=== PATIENT | female | born 1985 | race Caucasian/White ===

== ENCOUNTER 2017-09-19 16:05 | Emergency (ER) | payer OTHER, SELFPAY ==
[2017-09-19 16:05] VITALS: BP 111/82; PULSE 122; RESP 18; TEMP 36.8; O2SAT 99; BMI 34.5
[2017-09-19] MEDS: Metoclopramide 10 MG/2 ML Vial IV (16:31)
[2017-09-19] MEDS: Lactated Ringers 1,000 ML 999 ML IV ×2 (16:31→18:13)
[2017-09-19 16:36] LABS: Absolute Lymphocyte Count 0.61 X10^3/ul (0.83-4.51); Absolute Neutrophil Count 9.6 X10^3/uL (2.0-7.7); Basophil# 0.01 X10^3/uL; Basophil% 0.1 % (0-1); Eosinophil# 0.02 X10^3/uL; Eosinophils% 0.2 % (0-5); Hematocrit 35.4 % (37-47); Hemoglobin 11.6 g/dl (12.0-15.0); Lymphocyte # 0.61 X10^3/ul (4.0); Lymphocyte % 5.8 % (19-41); Mean Corp Hgb Conc 32.8 g/gl (32-36); Mean Corpuscular Hgb 28.2 pg (27.0-32.0); Mean Corpuscular Volume 85.9 fL (81-99); Mean Platelet Vol. 11.5 fl (6.2-12.0); Monocyte% 2.8 % (0-10); Neutrophil # 9.58 X10^3/uL (2.7-7.7); POSITIVE COUNT NO; POSITIVE DIFFERENTIAL NO; POSITIVE MORPHOLOGY NO; Platelet Count 146 K/mm3 (150-450); RBC Distribution Width CV 13.1 % (11.6-14.6); RBC Distribution Width SD 40.9 fl (35.1-43.9); Red Blood Count 4.12 M/mm3 (4.2-5.4); White Blood Count 10.5 K/mm3 (4.4-11.0)
[2017-09-19 16:51] LABS: ALB/GLOB Ratio 0.7 RATIO (0.9-2.4); AST(SGOT) 15 U/L (15-37); Alanine Aminotransfer ALT/SGPT 15 U/L (13-56); Albumin, Serum 2.9 g/dL (3.2-5.0); Alkaline Phosphatase 119 U/L (45-117); Anion Gap 10 (5-15); BUN 6 mg/dL (7-18); BUN/Creat Ratio 11.1 RATIO (10-20); Calcium,Total 8.4 mg/dL (8.5-10.1); Chloride 108 mmol/L (98-107); Creatinine, Serum 0.54 mg/dL (0.55-1.02); EST Glomerular Filtration Rate 138 mL/min (>60); Est Glom Filt Rate - Afr Amer 167 mL/min (>60); Estimated Creatinine Clearance 118.29 ml/min; Globulin 4.2 g/dL (2.2-4.2); Glucose 89 mg/dL (74-106); Protein, Total 7.1 g/dL (6.4-8.2); Sodium Level 139 mmol/L (136-145)
[2017-09-19 19:54] VITALS: BP 97/46; PULSE 78; RESP 16; O2SAT 100
[2017-09-19] MEDS: Meclizine HCl 25 MG Tablet PO (19:55)
--- NOTE | 2017-09-19 20:31 | ED.DCSUM_ITS ---
- ER Visit Summary Date of Service: 09/19/17 Chief Complaint: Nausea vomiting and dizziness History of Present Illness: The patient is a 32 F presenting for evaluation secondary nausea vomiting dizziness. Patient reports that approximately 9:00 this morning she had a relatively sudden onset dizziness. Patient describes this as a room spinning type sensation that is worse with any sort of change in position. Patient states that since that happened she has developed significant nausea and vomiting up to 6 and 7 episodes. She also has had one episode of loose diarrhea. She denies any presence of fevers. She denies any head injuries visual changes numbness or weakness. She denies any speech difficulties. Patient is 37 weeks , . She denies any vaginal bleeding or loss of fluid or decreased movement. She denies any tinnitus or recent dental work. Review of systems otherwise negative. Physical Examination: Vital signs are notable for heart rate of 172 on presentation. Well-nourished female no acute distress. Ocular exam shows left- going nystagmus. Moist mucous membranes. Neck was supple. Heart was tachycardic and regular. Lung sounds clear to auscultation bilaterally. Abdomen was nontender and gravid. Extremities were nonedematous. Skin normal color no rash. Patient was alert and oriented, no lateralizing neurological deficits and normal cerebellar testing. Test Results: CBC shows mild anemia 11.6, chemistry shows an elevated chloride 108, liver panel shows mildly elevated alkaline phosphatase 119 Emergency Department Course and Treatment: Patient presented for evaluation secondary dizziness nausea vomiting. Patient was given Reglan for treatment of her nausea and did have some improvement. Patient had persistent nystagmus which seems consistent with a peripheral vertigo and was given meclizine. I did perform a Aviva maneuver on this patient, but was unsuccessful in totally alleviating the patient's symptoms. Patient's heart rate improved with 2 L of lactated Ringer's. At this point I believe patient is safe for discharge. She will be sent home with a course of meclizine and follow-up with primary care. Disposition: Discharge Impression: 1. Left-sided BPPV 2. 37 week This note was generated with [employer] software. It may contain incorrect words, spelling, and punctuation that were not noted in review of the chart prior to signing ED Disposition - Plan for ED Patient: Disposition: Home or Assisted Living Chief Complaint: Nausea/Vomiting Diagnosis: BPPV (benign paroxysmal positional vertigo) Instructions: ED BPV Vertigo Prescriptions: Meclizine HCl [Antivert] 25 mg PO 4X/DAY PRN PRN #20 tab PRN Reason: Dizziness
[2017-09-19 20:36] VITALS: BP 120/69; PULSE 100; RESP 20; O2SAT 97
== END 2017-09-19 20:36 | disposition home or self-care (01) ==
PROVIDERS: Emergency Provider Emergency Medicine
DX: O99.89 Other specified diseases and conditions complicating pregnancy, childbirth and the puerperium (principal); H81.12 Benign paroxysmal vertigo, left ear; Z3A.37 37 weeks gestation of pregnancy
CPT/HCPCS: 80053; 85025; 96361; 96374; 99284; J7120; A4216

== ENCOUNTER 2017-10-15 16:00 | Inpatient (IN) | payer OTHER, SELFPAY ==
[2017-10-15 17:30] VITALS: BMI 34.1
[2017-10-15] MEDS: 0.9% Normal Saline 100 ML IV.SOLN. INTRA-UTER (18:05)
[2017-10-15] MEDS: Lactated Ringers 1,000 ML 50 ML IV ×3 (18:15→23:45)
[2017-10-15 18:42] LABS: Hematocrit 36.1 % (37-47); Hemoglobin 11.7 g/dl (12.0-15.0); Mean Corp Hgb Conc 32.4 g/gl (32-36); Mean Corpuscular Hgb 27.5 pg (27.0-32.0); Mean Corpuscular Volume 84.7 fL (81-99); Mean Platelet Vol. 12.3 fl (6.2-12.0); Platelet Count 194 K/mm3 (150-450); RBC Distribution Width CV 13.8 % (11.6-14.6); RBC Distribution Width SD 42.4 fl (35.1-43.9); Red Blood Count 4.26 M/mm3 (4.2-5.4); Scan Indicated on CBC? Y/N NO; White Blood Count 11.2 K/mm3 (4.4-11.0)
--- NOTE | 2017-10-15 20:43 | HP.PCM_ITS ---
History Date of Admission: 10/15/17 Final CRISS: 10/08/17 Final CRISS Source: US <20 weeks Gestational age: 41 Weeks and 0 Days History of this : 32-year-old 3 para 2 female who presents at 41 weeks gestational age with EDC of 10/08/2017 by last menstrual period confirmed by first trimester ultrasound presents today for induction of labor. She has had some irregular contractions. She has had no gross vaginal bleeding or leaking of food. She has had good movements. She has a history of one previous section for nonreassuring heart tones and she has a second there was a spontaneous vaginal delivery without complications. Allergies levofloxacin [From Levaquin] Allergy (Verified 09/19/17 16:09) Swelling sulfamethoxazole [From Bactrim] Allergy (Verified 09/19/17 16:09) Other family history trimethoprim [From Bactrim] Allergy (Verified 09/19/17 16:09) Other family history Home Medications: Home Medications Vits [Prenatabs FA] 1 tablet PO DAILY 06/24/14 Smoking Status: Never smoker Alcohol: None Substance Use Type: Alcohol Number of Fetus(es): 1 Heart Tracing: category 1 upon admission TOCO Analysis: ctxs q4 min History Past Pregnancies: Past Pregnancies Delivery Date Name GA/Weeks Outcome Route Weight Infant Gender Labor Length Anesthesia Delivery Location Provider FOB Expected Infant Delivery Method: Review of Systems Constitutional: Denies: Anorexia, Chills, Fever Cardiovascular: Denies: Chest Pain Respiratory: Denies: Cough, Shortness of Breath Skin: Denies: Rash Physical Exam General: Alert, Cooperative, No apparent distress Cardiovascular: Regular rate Lungs: Normal air movement Abdomen: Soft, Non Tender, Non-Distended, Gravid, Appropriate for Gestational Age Extremities:: Other - edema -trace BLUEPRINT BLOCKER: Normal external genitalia Estimated gestational size: Appropriate for gestational size Presentation: Cephalic Cervix Dilation (cm): 2.5 - mid position, medium consistency Station: -3 Effacement (%): 50 Assessment/Plan 32-year-old 3 para 2 female at 41 weeks gestation with history of one previous section followed by one successful vaginal delivery. Risks benefits and alternatives to induction of labor have been discussed with the patient, her questions were answered to her satisfaction she desires to proceed. We will proceed with Winkler ripening. Will use artificial rupture membranes and Pitocin augmentation if needed. Estimated weight is less than 4500 g and pelvis clinically adequate to expect vaginal delivery. Patient understands that she can elect for section at any time. Procedure note: The Winkler was placed over the stylette in to the internal cervical loss in the usual sterile fashion. The balloon was inflated to 30 cc. Placement against the internal cervical loss was confirmed. The patient tolerated the procedure well..
[2017-10-15] MEDS: fentaNYL-bupivacaine (epidural) 100 ML BAG EPIDURAL (21:38)
[2017-10-15] MEDS: Oxytocin 30 units/NS 500 ml 30 UNITS/500 ML IV.SOLN IV (23:30)
[2017-10-16] MEDS: fentaNYL-bupivacaine (epidural) 100 ML BAG EPIDURAL (07:46)
[2017-10-16] MEDS: Oxytocin 30 units/NS 500 ml 30 UNITS/500 ML IV.SOLN 334 UNITS IV (09:01)
--- NOTE | 2017-10-16 09:10 | PCM.OB.VAG ---
Vaginal Delivery Maternal Presentation: Medically Indicated Induction Method of Induction: Pitocin, Winkler Bulb, Amniotomy Medical Reason for Induction: - - 41 weeks Amniotic Membrane Rupture Type: Artificial Amniotic Fluid Description: Clear Final CRISS: 10/08/17 Final CRISS Source: US <20 weeks Gestational age: 41 Weeks and 1 Days Date of Procedure: 10/16/17 Pre-Operative Diagnosis: labor Post-Operative Diagnosis: same Surgery/ Procedure Performed: Spontaneous Vaginal Delivery Type of Anesthesia: Epidural Description of Procedure: A vigorous male infant was delivered [LIBAN] over a small first-degree perineal laceration.. The remainder the infant was delivered with maternal pushing and gentle traction only in less than 15 seconds. The Pitocin infusion was initiated for active management of the third stage. The cord was clamped and cut [after 1 minute]. The infant was attended to by the waiting nursing staff. The placenta was delivered spontaneously and intact. The cervix and vagina were intact. The first-degree laceration was hemostatic and not repaired. Lower uterine segment of the uterus was palpated and intact. Sponge and needle counts were correct. A vaginal sweep was completed by me. Presentation: LIBAN Placental Delivery Description: Spontaneous Placenta Disposition: [facility] Cord Vessel Description: 3 Vessels Cord Entanglement: None Drain: Winkler to straight drain Estimated Blood Loss: 200cc Infant A gender: Male (1 minute): 8 (5 minute): 9 Episiotomy Description: None Laceration: 1st degree - not repaired Medications given after delivery: IV Pitocin Complications: None
[2017-10-16] MEDS: Oxytocin 30 units/NS 500 ml 30 UNITS/500 ML IV.SOLN 167 UNITS IV (09:31)
[2017-10-16] MEDS: 0.9% Saline Lock 10 ML Syringe IV (10:42)
[2017-10-16 11:30] VITALS: BP 109/59; PULSE 81; RESP 18; TEMP 37.2
--- NOTE | 2017-10-16 14:00 | NURSING ---
Epidural cath removed, blue tip intact. Winkler cath removed after balloon deflated. Attempt to get pt. up to bathroom for aisha-care, pt's left leg still too numb. Pt. back to bed, aisha-care completed.
[2017-10-16] MEDS: Naproxen 250 MG Tablet PO (16:56)
[2017-10-16 17:04] VITALS: BP 120/70; PULSE 81; RESP 18; TEMP 36.7
[2017-10-16 21:00] VITALS: BP 109/65; PULSE 76; RESP 16; TEMP 36.7; O2SAT 97
[2017-10-17 01:00] VITALS: BP 106/61; PULSE 80; RESP 16; TEMP 36.8; O2SAT 98
[2017-10-17 05:00] VITALS: BP 106/61; PULSE 80; RESP 16; TEMP 36.3; O2SAT 98
[2017-10-17 08:57] VITALS: BP 104/72; PULSE 77; RESP 18; TEMP 36.3
[2017-10-17] MEDS: Naproxen 250 MG Tablet PO (09:50)
[2017-10-17 10:11] VITALS: BP 104/72; PULSE 77; RESP 18; TEMP 36.3
--- NOTE | 2017-10-17 10:12 | DCINST_ITS ---
Discharge Diet: No Restrictions Discharge Activity: Return to Normal Activity, May not drive while taking narcotic pain medications., May Shower May resume sexual activity in: 4-6 weeks Additional Activity Instructions:: Nothing in the vagina for 4-6 weeks. You may return to work/school in 6 weeks. Call your doctor if your incision/area has: Continuous Slow Oozing, Sudden Increased Bleeding, Increased Pain/ Swelling, Increased Redness, Foul Smelling Discharge Call your doctor if you observe: Fever of 101 or Higher, Inability to urinate, Inability to have a bowel movement, Using more than one pad per hour Additional Instructions: If you experience any of the following, contact your healthcare provider. * Bleeding that soaks a pad every hour for 2 hours * Fever 100.4 or higher * Unrelieved incision or abdominal pain * Swelling, redness, discharge or bleeding from your incision or episiotomy site * Your incision begins to separate * Problems urinating (including inability to urinate or burning while urinating) . * Visual changes * Severe headache * Flu-like symptoms * Pain or redness in one of both of your breasts * Pain, warmth, tenderness or swelling in your legs, especially the calf area * Frequent nausea and vomiting * Symptoms of depression or anxiety If you experience any of the following, call 911 or go to the nearest Emergency Room. * Chest pain * Problems breathing * Seizure activity * Partial or complete paralysis of a body part, slurred speech, weakness or drooping of the face, or a sudden inability to walk or hold your balance Allergies/Adverse Reactions: Allergies levofloxacin [From Levaquin] Allergy (Verified 09/19/17 16:09) Swelling sulfamethoxazole [From Bactrim] Allergy (Verified 09/19/17 16:09) Other family history trimethoprim [From Bactrim] Allergy (Verified 09/19/17 16:09) Other family history Medications to take at Discharge Vits [Prenatabs FA] 1 tablet PO DAILY 06/24/14 Please Follow Up With: Rosenda Saenz MD When: Call to make an appointment with your doctor in 6 weeks. If you had elevated Blood Pressure or 4th degree laceration you will need to be seen in 2 weeks. Primary Care Physician: Care Physician,No Primary [Primary Care Provider] - Test Results: Test results from this visit will be discussed in further detail at your follow- up appointment, if applicable. Proposed Discharge Date: 10/17/17
--- NOTE | 2017-10-17 10:12 | PCM.PN.OB ---
Subjective: Patient sitting up in bed finishing breakfast, reports no issues at this time. Patient reports that baby is latching well, denies any issues with . Patient denies CHRISTENSEN, dizziness or scotoma. Patient notes no issues with urination or ambulation. Patient desires discharge to home today. Objective: Nipples without cracks or blisters Abd NT x 4 quadrants, FF midline @ 2FB below umbilicus +2/4 reflexes in LE, no edema noted. Negative calf tenderness. Scant rubra lochia, intact perineum - Physical Exam General: Alert, Oriented x3, Cooperative HEENT: Atraumatic, Normocephalic Neck: Supple Lungs: Normal air movement Cardiovascular: Regular rate, No murmurs Abdomen: Soft, Non Tender Extremities: No edema, Capillary Refill Less than 3 Seconds Skin: No rashes, No breakdown Musculoskeletal: No Tenderness to Palpation of Joints or Extremities Neurological: Cranial nerves II-XII grossly intact, Deep Tendon Reflexes 2+/4 and Symmetrical Psych/Mental Status: Normal Affect, Appropriate, Alert and oriented to time, place, person, mood and affect Vital Signs Temp Pulse Resp BP Pulse Ox 97.3 F L 77 18 104/72 98 10/17/17 08:57 10/17/17 08:57 10/17/17 08:57 10/17/17 08:57 10/17/17 05:00 Oxygen Delivery Method Room Air Weight: 186 lb 11.704 oz Body Mass Index (BMI) 34.1 Intake and Output for Last 24 Hours 10/15/17 10/16/17 10/17/17 23:59 23:59 23:59 Intake Total 3480 / 3480 Output Total 1200 / 1200 Balance 2280 / 2280 Laboratory Tests Past 24 Hrs 10/16/17 13:55 Screen NEGATIVE Baby's Blood Type O POSITIVE Baby's SHELLY NEGATIVE Medical Necessity - Tobacco Use Smoking Status: Never smoker Assessment/Plan 32 y/o s/p , , PPD #1, Normal PP Course P: 1) Discharge to home pending discharge 2) Anticipatory discharge teaching done 3) RTC by 6 weeks PP for f/u visit at [facility] Rema LUNDY
--- NOTE | 2017-10-21 19:53 | NURSING ---
follow up call attempted, left voicemail
== END 2017-10-17 11:10 | disposition home or self-care (01) | DRG 775 ==
PROVIDERS: Admitting Provider Obstetrics & Gynecology; Visit Provider Obstetrics & Gynecology
DX: O34.219 Maternal care for unspecified type scar from previous cesarean delivery (principal); O70.0 First degree perineal laceration during delivery; O48.0 Post-term pregnancy; Z3A.41 41 weeks gestation of pregnancy; Z37.0 Single live birth
CPT/HCPCS: 59025; 59050; 85027; 85461; 86850; 86900; 90384; 99218; J7120; A4216; G0378; J2790; J3490

== ENCOUNTER 2019-01-04 06:57 | Inpatient (IN) | payer OTHER, SELFPAY ==
[2019-01-04 08:02] LABS: Absolute Lymphocyte Count 0.95 X10^3/uL (0.83-4.51); Absolute Neutrophil Count 8.2 X10^3/uL (2.0-7.7); Basophil# 0.03 X10^3/uL; Basophil% 0.3 % (0-1); Eosinophil# 0.16 X10^3/uL; Eosinophils% 1.6 % (0-5); Hematocrit 37.7 % (37-47); Hemoglobin 12.4 g/dL (12.0-15.0); Lymphocyte # 0.95 X10^3/ul (4.0); Lymphocyte % 9.7 % (19-41); Mean Corp Hgb Conc 32.9 g/dL (32-36); Mean Corpuscular Hgb 29.2 pg (27.0-32.0); Mean Corpuscular Volume 88.7 fL (81-99); Mean Platelet Vol. 11.7 fl (6.2-12.0); Monocyte# 0.36 X10^3/uL; Monocyte% 3.7 % (0-10); NRBC Flagged by Analyzer 0 % (0-5); Neutrophil # 8.21 X10^3/uL (2.7-7.7); Neutrophil % 84.3 % (47-70); Platelet Count 151 K/mm3 (150-450); RBC Distribution Width CV 15.9 % (11.6-14.6); RBC Distribution Width SD 51.3 fl (35.1-43.9); Red Blood Count 4.25 M/mm3 (4.2-5.4); White Blood Count 9.8 K/mm3 (4.4-11.0)
[2019-01-04] MEDS: Lactated Ringers 1,000 ML 50 ML IV (08:03)
[2019-01-04] MEDS: Oxytocin 30 units/NS 500 ml 30 UNITS/500 ML IV.SOLN IV (08:03)
--- NOTE | 2019-01-04 08:43 | PCM.HP.OB ---
History Date of Admission: 10/15/17 Final CRISS: 01/04/19 Final CRISS Source: US <20 weeks Gestational age: 40 Weeks and 0 Days History of this : This is a 33 year-old, 4 para 3 at 40 weeks gestation with EDC of 01/04/2019 by last menstrual period confirmed by first trimester ultrasound presents for elective induction of labor. She has a history of one previous section followed by 2 successful vaginal births. Her leaking of fluid. She is had good movement. She has history of iron deficiency anemia during the . She had IV iron infusions during the . Menses otherwise uncomplicated to date. Allergies levofloxacin [From Levaquin] Allergy (Verified 01/04/19 07:42) Swelling sulfamethoxazole [From Bactrim] Allergy (Verified 01/04/19 07:42) Other family history trimethoprim [From Bactrim] Allergy (Verified 01/04/19 07:42) Other family history Home Medications: Home Medications Vits [Prenatabs FA] 1 tablet PO DAILY 06/24/14 Smoking Status: Never smoker Alcohol: None Number of Fetus(es): 1 NST - FHR Rate Baby A Baseline: Normal Variability:: Moderate Accelerations:: 15 x 15 Decelerations:: None NST Reactive:: Yes FHR Category:: Category I Uterine Activity:: Irregular contractions History Past Pregnancies: Past Pregnancies Delivery Date Name GA/Weeks Outcome Route Weight Gender Labor Length Anesthesia Delivery Location Provider FOB Expected Infant Delivery Method: Spontaneous Vaginal Review of Systems Constitutional: Denies: Anorexia, Chills, Fever Eyes: Denies: Blurred vision Cardiovascular: Denies: Chest Pain Respiratory: Denies: Cough, Shortness of Breath Gastrointestinal: Denies: Abdominal Pain Genitourinary: Denies: Dysuria Skin: Denies: Rash Neurological: Denies: Balance problems, Blurred vision, Slurred speech Hematologic/ Lymphatic: Reports: Anemia. Denies: Hx of blood clot Physical Exam General: Alert, Cooperative, No apparent distress Cardiovascular: Regular rate Lungs: Normal air movement Abdomen: Soft, Non-Distended, Gravid, Appropriate for Gestational Age Extremities:: Other - Trace edema DIRECTIONAL SURVEY DRAFTER: Normal external genitalia Estimated gestational size: Appropriate for gestational size Presentation: Cephalic Cervix Dilation (cm): 3 Station: -2 Effacement (%): 60 Assessment/Plan This is a 33 year-old, 4 para 3 at 40 weeks gestation for an induction of labor due to history of obvious section, favorable cervix. Risk benefits and alternatives to induction been discussed with patient, questions were answered to her satisfaction she desires to proceed. We will proceed with artificial rupture membranes and Pitocin induction of labor. Patient plans epidural. IUPC placed. Estimated weight is less than 4500 g and pelvis is clinically adequate to expect vaginal delivery.
[2019-01-04] MEDS: Lactated Ringers 500 ML 999 ML IV (09:21)
[2019-01-04] MEDS: fentaNYL-bupivacaine (epidural) 100 ML BAG EPIDURAL (09:57)
[2019-01-04] MEDS: Oxytocin 30 units/NS 500 ml 30 UNITS/500 ML IV.SOLN 334 UNITS IV (13:46)
--- NOTE | 2019-01-04 13:59 | PCM.OPRPT ---
Report of Operation Date of Procedure: 01/04/19 Vaginal Delivery Maternal Presentation: Elective Induction, - - h/o c/s Method of Induction: Pitocin, Amniotomy Amniotic Membrane Rupture Type: Artificial Amniotic Fluid Description: Lightly stained meconium Final CRISS: 01/04/19 Final CRISS Source: US <20 weeks Gestational age: 40 Weeks and 0 Days Date of Procedure: 01/04/19 Pre-Operative Diagnosis: labor Post-Operative Diagnosis: same Surgery/ Procedure Performed: - - Vaginal after delivery Type of Anesthesia: Epidural Description of Procedure: A vigorous male infant was delivered LIBAN over intact perineum. We delivered easily through a loose nuchal cord x1. The remainder the infant was delivered with maternal pushing and gentle traction only in less than 15 seconds. The Pitocin infusion was initiated for active management of the third stage. The cord was clamped and cut to approximately 20 seconds because the infant was not immediately vigorous. After the cord was clamped, and it became vigorous. The was attended to by the waiting nursing staff. The placenta was delivered spontaneously and intact. The cervix and vagina were intact. The lower uterine segment was intact. Sponge and needle counts were correct. A vaginal sweep was completed by me. Presentation: LIBAN Placental Delivery Description: Spontaneous Placenta Disposition: [facility] Cord Vessel Description: 3 Vessels Nuchal Cord Compression: Without compression Cord Entanglement: Around neck x 1, loose Drain: - - none Estimated Blood Loss: 200 A gender: Male (1 minute): 8 (5 minute): 9 Episiotomy Description: None Laceration: None Medications given after delivery: IV Pitocin Complications: None
[2019-01-04 15:57] VITALS: BP 109/66; PULSE 84; RESP 16; TEMP 37.3; O2SAT 100
[2019-01-04 20:50] VITALS: BP 120/79; PULSE 81; RESP 16; TEMP 36.7
[2019-01-04 23:20] VITALS: BP 111/59; PULSE 75; RESP 16
[2019-01-05 03:20] VITALS: BP 102/67; PULSE 85; RESP 16; TEMP 36.3
[2019-01-05 06:53] LABS: Hemoglobin 11.3 g/dL (12.0-15.0); Mean Corp Hgb Conc 32.3 g/dL (32-36); Mean Corpuscular Hgb 28.9 pg (27.0-32.0); Mean Corpuscular Volume 89.5 fL (81-99); Mean Platelet Vol. 12.3 fl (6.2-12.0); Platelet Count 146 K/mm3 (150-450); RBC Distribution Width CV 15.9 % (11.6-14.6); RBC Distribution Width SD 52.3 fl (35.1-43.9); Red Blood Count 3.91 M/mm3 (4.2-5.4); White Blood Count 9.7 K/mm3 (4.4-11.0)
--- NOTE | 2019-01-05 07:56 | DCINST_ITS ---
Discharge Diet: No Restrictions Discharge Activity: May Drive, May Shower May resume sexual activity in: 6 weeks Weight Bearing Status: Weight bearing as tolerated Additional Instructions: If you experience any of the following, contact your healthcare provider. * Bleeding that soaks a pad every hour for 2 hours * Fever 100.4 or higher * Unrelieved incision or abdominal pain * Swelling, redness, discharge or bleeding from your incision or episiotomy site * Your incision begins to separate * Problems urinating (including inability to urinate or burning while urinating). * Visual changes * Severe headache * Flu-like symptoms * Pain or redness in one of both of your breasts * Pain, warmth, tenderness or swelling in your legs, especially the calf area * Frequent nausea and vomiting * Symptoms of depression or anxiety If you experience any of the following, call 911 or go to the nearest Emergency Room. * Chest pain * Problems breathing * Seizure activity * Partial or complete paralysis of a body part, slurred speech, weakness or drooping of the face, or a sudden inability to walk or hold your balance Allergies/Adverse Reactions: Allergies levofloxacin [From Levaquin] Allergy (Verified 01/04/19 07:42) Swelling sulfamethoxazole [From Bactrim] Allergy (Verified 01/04/19 07:42) Other family history trimethoprim [From Bactrim] Allergy (Verified 01/04/19 07:42) Other family history Medications to take at Discharge Vits [Prenatabs FA ] 1 tablet PO DAILY 06/24/14 Fluconazole [Diflucan] 150 mg PO X1 #1 tab 01/05/19 The following prescriptions were given: Fluconazole [Diflucan] 150 mg PO X1 #1 tab Prescription Printed Primary Care Physician: Care Physician,No Primary [Primary Care Provider] - Test Results: Test results from this visit will be discussed in further detail at your follow- up appointment, if applicable.
--- NOTE | 2019-01-05 07:56 | PCM.DCVAG ---
Discharge Diet: No Restrictions Discharge Activity: May Drive, May Shower May resume sexual activity in: 6 weeks Weight Bearing Status: Weight bearing as tolerated Additional Instructions: If you experience any of the following, contact your healthcare provider. Bleeding that soaks a pad every hour for 2 hours Fever 100.4 or higher Unrelieved incision or abdominal pain Swelling, redness, discharge or bleeding from your incision or episiotomy site Your incision begins to separate Problems urinating (including inability to urinate or burning while urinating). Visual changes Severe headache Flu-like symptoms Pain or redness in one of both of your breasts Pain, warmth, tenderness or swelling in your legs, especially the calf area Frequent nausea and vomiting Symptoms of depression or anxiety If you experience any of the following, call 911 or go to the nearest Emergency Room. Chest pain Problems breathing Seizure activity Partial or complete paralysis of a body part, slurred speech, weakness or drooping of the face, or a sudden inability to walk or hold your balance Allergies/Adverse Reactions: Allergies levofloxacin [From Levaquin] Allergy (Verified 01/04/19 07:42) Swelling sulfamethoxazole [From Bactrim] Allergy (Verified 01/04/19 07:42) Other family history trimethoprim [From Bactrim] Allergy (Verified 01/04/19 07:42) Other family history Medications to take at Discharge Vits [Prenatabs FA ] 1 tablet PO DAILY 06/24/14 Fluconazole [Diflucan] 150 mg PO X1 #1 tab 01/05/19 The following prescriptions were given: Fluconazole [Diflucan] 150 mg PO X1 #1 tab Prescription Printed Primary Care Physician: Care Physician,No Primary [Primary Care Provider] - Test Results: Test results from this visit will be discussed in further detail at your follow-up appointment, if applicable.
--- NOTE | 2019-01-05 07:56 | PCM.PN.OB ---
Subjective: No complaints - Physical Exam Vitals/I&O's: Vital Signs Temp Pulse Resp BP Pulse Ox 97.3 F L 85 16 102/67 100 01/05/19 03:20 01/05/19 03:20 01/05/19 03:20 01/05/19 03:20 01/04/19 15:57 Oxygen Delivery Method Room Air Weight: 196 lb 3.382 oz Intake and Output for Last 24 Hours 01/03/19 01/04/19 01/05/19 23:59 23:59 23:59 Intake Total 1878.24 / 1878.24 Output Total 1800 / 1800 Balance 78.24 / 78.24 General: Alert, Oriented x3 Abdomen: Soft, Non Tender, Non-Distended - ff mid & below umb Extremities: No Calf Tenderness Laboratory Results 01/04/19 07:48: WBC 9.8, RBC 4.25, Hgb 12.4, Hct 37.7, MCV 88.7, MCH 29.2, MCHC 32.9, RDW Std Deviation 51.3 H, RDW Coeff of Harriet 15.9 H, Plt Count 151, MPV 11.7, Immature Gran % (Auto) 0.400, Neut % (Auto) 84.3 H, Lymph % (Auto) 9.7 L, [place] % (Auto) 3.7, Eos % (Auto) 1.6, Baso % (Auto) 0.3, Absolute Neuts (auto) 8.2 H, Absolute Lymphs (auto) 0.95, Nucleated RBC % 0 01/04/19 07:48: Blood Type O NEGATIVE, Antibody Screen NEGATIVE 01/04/19 15:35: Screen NEGATIVE, Baby's Blood Type O POSITIVE, Baby's SHELLY NEGATIVE 01/05/19 06:10: WBC 9.7, RBC 3.91 L, Hgb 11.3 L, Hct 35.0 L, MCV 89.5, MCH 28.9, MCHC 32.3, RDW Std Deviation 52.3 H, RDW Coeff of Harriet 15.9 H, Plt Count 146 L, MPV 12.3 H Current Medications Acetaminophen (Tylenol) 1,000 mg PO Q8H PRN PRN PRN Reason: Pain Score 1-3/10 Bisacodyl (Dulcolax) 10 mg RECTAL UD PRN PRN Reason: If no BM Dibucaine (Dibucaine) 1 applic TOPICAL TID PRN PRN; Protocol PRN Reason: Discomfort Hydrocortisone (Hytone) 1 applic TOPICAL TID PRN PRN; Protocol PRN Reason: Discomfort Methylergonovine Maleate (Methergine) 0.2 mg IM X1 PRN PRN Reason: Excess bleeding/uterine atony Naproxen (Naprosyn) 500 mg PO Q8H PRN PRN PRN Reason: Pain Score 1-3/10 Ondansetron HCl (Zofran) 4 mg IV Q4H PRN PRN PRN Reason: Nausea Prochlorperazine Edisylate (Compazine Iv) 10 mg IV Q6H PRN PRN PRN Reason: NAUSEA/VOMITING Senna/Docusate Sodium (Senokot-S, [place]-Colace) 1 - 2 tablet PO DAILY PRN PRN PRN Reason: Constipation Simethicone (Mylicon) 80 mg PO PCHS PRN PRN Reason: Indigestion/Stomach pain Sodium Chloride () 5 - 15 ml IV UD PRN PRN Reason: SALINE FLUSH Medical Necessity - Tobacco Use Smoking Status: Never smoker Assessment/Plan PPD#1 D/c home later today per patient request
[2019-01-05 08:15] VITALS: BP 102/66; PULSE 81; RESP 16; TEMP 36.3
[2019-01-05] MEDS: Naproxen 250 MG Tablet 500 MG PO (10:57)
[2019-01-05 12:00] VITALS: BP 105/66; PULSE 77; RESP 16; TEMP 36.4
[2019-01-05 16:00] VITALS: BP 104/66; PULSE 76; RESP 16; TEMP 36.7
== END 2019-01-05 16:40 | disposition home or self-care (01) | DRG 807 ==
PROVIDERS: Admitting Provider Obstetrics & Gynecology; Referring Provider Obstetrics & Gynecology; Visit Provider Obstetrics & Gynecology
DX: O34.219 Maternal care for unspecified type scar from previous cesarean delivery (principal); Z37.0 Single live birth; O77.0 Labor and delivery complicated by meconium in amniotic fluid; O99.02 Anemia complicating childbirth; D50.9 Iron deficiency anemia, unspecified; O69.81X0 Labor and delivery complicated by cord around neck, without compression, not applicable or unspecified; Z3A.40 40 weeks gestation of pregnancy
CPT/HCPCS: 59025; 59050; 85025; 85027; 85461; 86850; 86900; 86901; 90384; 99218; J7120; G0378; J2790

== ENCOUNTER 2020-07-11 05:43 | Day surgery (SDC) | payer OTHER, SELFPAY ==
--- NOTE | 2020-07-02 11:53 | HP.PCM_ITS ---
History and Physical Date of Admission: 07/11/20 HPI: The patient is a 34 year old female presenting for pre-operative visit. She is scheduled for?laparopcsopic bilateral salpingectomy, for?sterilization on?07/11/20. ??Procedure discussed along with risks, benefits and complications. ?Other alternatives discussed for management. Consent form signed??Yes.? PAST MEDICAL HISTORY PAST MEDICAL HISTORY Diagnosis Date ? Iron deficiency anemia during 10/10/2018 ? Rh negative, maternal ? ? ? PAST SURGICAL HISTORY PAST SURGICAL HISTORY Procedure Laterality Date ? S SNGL ? 04/28/2012 ? ? w CURRENT MEDICATIONS Current Outpatient Medications Medication Sig Dispense Refill ? Norethin Rod-Eth Estrad-FE (MICROGESTIN FE 04/03) 1 mg-20 mcg ()/75 mg (7) per tablet Take 1 tablet by mouth once daily. 1 Package 0 ? MULTIVITAMIN ORAL Take by mouth. ? ? ? No current facility-administered medications for this visit. ? ALLERGIES:?Bactrim [Sulfamethoxazole] and Levaquin [Levofloxacin] ? PERSONAL HISTORY:? SOCIAL HISTORY Social History ? Tobacco Use ? Smoking status: Never Smoker ? Smokeless tobacco: Never Used Vaping Use ? Vaping Use: Never used Substance Use Topics ? Alcohol use: No ? Drug use: No ? FAMILY HISTORY:? FAMILY HISTORY FAMILY HISTORY Problem Relation Age of Onset ? Hypertension Mother ? ? Diabetes Mother ? ? No Known Problems Father ? ? No Known Problems Sister ? ? Hypertension Maternal Grandmother ? ? Diabetes Maternal Grandmother ? ? No Known Problems Paternal Grandfather ? ? Cancer Paternal Grandmother ?melanoma then metastiszed ? Arthritis Maternal Grandfather ?Rheumatoid Arthritis ? No Known Problems Daughter ? ? No Known Problems Daughter ? ? No Known Problems Son ? ? REVIEW OF SYMPTOMS: GENERAL: denies fevers or chills ENDOCRINOLOGY: has not been on steroids Cardiology : denies palpitations or chest pain Respiratory: denies SOB or cough Hematology: denies history of prolonged bleeding or easy bruising or VTE Allergy: Denies history of personal or family history of allergy to anesthesia ? ? PHYSICAL EXAMINATION: ? VITALS:?Last menstrual period 03/18/2020, not currently . ? GENERAL:??The patient is well nourished, well hydrated in no acute distress. ?, The patient is oriented to time, place, and person. NECK:?Supple. No lynphadenopathy, normal thyroid, no thyromegaly. LUNGS:?Clear to auscultation bilaterally. no wheezes, rhonchi or rales HEART:?Regular rate and rhythm, Normal heart sounds and No murmurs or gallops ? ? IMPRESSION:?preop visit, sterilization request ? PLAN:???The risks/benefits/alternatives and personal involved for the planned?laparoscopic bilateral salpignectomy?were reviewed with the patient. Her questions were answered to her satisfaction and she desires to proceed. ?Consent was signed. ?I reviewed with her postop instructions and expectations. ? Risks, benefits and alternatives to sterilization have been discussed with the patient. ?She declines reversible options including LARC. ?She understands sterilization is permanent, irreversible, risks of failure, regret and ectopic. ?In addition she understands there are surgical risks as well. ?Her questions were answered to her satisfaction and consent was signed ? ? ? I have reviewed and updated past medical and surgical history, medications and allergies. This H&P was completed in my office on 07/02/20.
[2020-07-11 06:20] LABS: Internal QC Validated? YES +Cl - CLEAR BKGD; Pregnancy, Urine Negative Negative
[2020-07-11 06:33] VITALS: BP 111/61; PULSE 78; RESP 18; TEMP 36.7; O2SAT 100; BMI 28.5
[2020-07-11] MEDS: Acetaminophen 500 MG Tablet 1000 MG PO (06:38)
[2020-07-11] MEDS: Celecoxib 200 MG Capsule 400 MG PO (06:38)
[2020-07-11] MEDS: Lactated Ringers 1,000 ML 100 ML IV ×2 (07:00→08:31)
[2020-07-11 07:05] LABS: Hematocrit 40.5 % (37-47); Hemoglobin 13.3 g/dL (12.0-15.0); Mean Corp Hgb Conc 32.8 g/dL (32-36); Mean Corpuscular Hgb 30.1 pg (27.0-32.0); Mean Corpuscular Volume 91.6 fL (81-99); Mean Platelet Vol. 9.9 fl (6.2-12.0); Platelet Count 249 K/mm3 (150-450); RBC Distribution Width CV 12.3 % (11.6-14.6); RBC Distribution Width SD 41.4 fl (35.1-43.9); Red Blood Count 4.42 M/mm3 (4.2-5.4); White Blood Count 4.9 K/mm3 (4.4-11.0)
--- NOTE | 2020-07-11 07:30 | FALS_PTH ---
PATIENT: PHYLLIS PÉREZ [place] [facility] [place][id number] AGE/SX: 35/F ROOM: RE07/11/[address]: Dr. Rosenda Saenz MD : 1985 BED: DIS: 07/11/2020 SPEC #: [id number] RECD: 07/11/20 12:20 STATUS: MARIELA REQ #: [id number] KIRSTIN: 07/11/20 07:[address]: Rosenda Saenz DEPT: SURGICAL PATHOLOGY RECD BY: Jenny Cordero ENTERED: 07/11/20 12:49 SP TYPE: FALL TUBES OTHR DR: Ailyn Osuna, [facility]-Renetta Tissues: Fallopian tube Procedures: Surgery Specimen Level IV HEADER OPERATION: Laparoscopic salpingectomy PRE-OP DIAGNOSIS: Sterilization TISSUE SUBMITTED: Bilateral fallopian tubes MICROSCOPIC DIAGNOSIS Bilateral fallopian tubes, salpingectomy: Bilateral fallopian tubes including fimbrial ends with no significant histopathologic abnormality. SJ:mar 07/12/2020 COMMENT Focal minimal chronic inflammation is noted. Case has been reviewed in consultation with Dr. Long who concurs with the above diagnosis. IDC:AM MICROSCOPIC DESCRIPTION Slides are reviewed. GROSS DESCRIPTION Received in fixative is one container labeled with the patient's name and designated bilateral fallopian tubes. The specimen consists of bilateral fallopian tubes including fimbrial ends measuring 5.5 cm in length and 0.5 cm in diameter and 5 cm in length and 0.5 cm in diameter. The fallopian tubes are not identified as right or left. Sections reveal unremarkable cut surfaces. Staff Development Coordinator Rn sections are submitted in two cassettes with each cassette containing one fallopian tube. / JEROMY:mar 07/11/20 TC:3 CPT: 56594 x2
[2020-07-11] MEDS: Bupivacaine Mpf 0.5% 30 ML VIAL (08:00)
[2020-07-11 08:24] VITALS: BP 120/81; PULSE 90; RESP 18; TEMP 36.3; O2SAT 98
[2020-07-11 08:30] VITALS: BP 111/61; BP 115/69; PULSE 76; RESP 18; O2SAT 98
[2020-07-11 08:40] VITALS: BP 106/72; BP 111/61; PULSE 70; RESP 18; TEMP 36.2; O2SAT 99
--- NOTE | 2020-07-11 09:19 | SUR.PHASEII ---
Awaiting orders and disposition from physician. Patient updated on status of discharge. Patient does not have any other questions or concerns at this time. Patient is comfortable and resting with in room. Call light in place.
--- NOTE | 2020-07-11 09:25 | PCM.OPRPT ---
Problems Associated Problem List Diagnoses (1) Sterilization: Report of Operation Date of Procedure: 07/11/20 Pre-Operative Diagnosis: sterilization request Post-Operative Diagnosis: same Surgery/Procedure Performed:: Laparoscopic bilateral salpingectomy Description of Surgical Findings:: Normal uterus tubes and ovaries. testing and regulating chief: YULI MS3 Type of Anesthesia: General/Regional Anesthesiologist: Octavia Amezcua Special Medications: none Specimen's removed: none Drains: none Estimated Blood Loss (mL): 5 Fluids Replaced: 1200 CC LR Description of Procedure: The patient was taken to the operating room where she was prepped and draped in the dorsolithotomy position. A weighted speculum was placed in the vagina and the anterior lip of the cervix was grasped with a tenaculum. The Laisha uterine manipulator was placed and the remainder of the instruments were removed from the vagina. Attention was turned to the abdomen. All port sites were infiltrated with 0.5% Marcaine before skin incisions were made. A 5 mm intraumbilical incision was made. The anterior abdominal wall was tented up with 2 towel clamps while a 5 mm blade less trocar and sleeve were [directly inserted]. Intraperitoneal placement was confirmed with the laparoscope. The pneumoperitoneum was created and the underlying abdominal contents were intact. The patient was placed in Trendelenburg. Right and left lower quadrant ports were placed under direct visualization lateral to the inferior epigastric vessels. The bowel was swept away and the above findings were noted. The LigaSure device was used to clamp seal and transect the antimesenteric portions of the right tube to the cornual insertion of the uterus. The tube was amputated from the uterus and the pedicles were all confirmed to be hemostatic. The same procedure was performed on the contralateral side. The specimens were brought out through a 5 mm port. The pedicles were again examined and found to be hemostatic. The lateral ports were removed under direct visualization and no active bleeding was noted. The pneumoperitoneum was released. The skin incisions were closed with Monocryl suture in a subcuticular fashion and skin glue []. The vaginal instruments were removed and the vaginal sweep was completed by me. The procedure was performed by me with assistance other than as dictated above. All sponge and needle counts were correct and the patient was taken to the recovery room in stable condition. Start time 0758 Stop [id number] Grafts/Implants Used: none Complications none Admit VTE Documentation VTE Present on Admission: No VTE Mechan Device Prophylaxis: SCD's VTE Pharm Prophylaxis ordered?: No Reason prophylaxis not ordered:: Procedure Not Indicated
--- NOTE | 2020-07-11 09:32 | DCINST_ITS ---
Discharge Instructions Outpatient Procedure Reason For Visit: BILATERAL LAP SALPING Diet Discharge Diet: No restrictions Activity Discharge Activity: May not drive while taking narcotic pain medications., May Shower and May Take a Tub Bath (in 3 days) May resume sexual activity in: 1 week Dressing / Incision Call your doctor if your incision/area has: Sudden Increased Bleeding and Foul Smelling Discharge Call your doctor if you observe: Fever of 101 or Higher Cleanse incision/area with: Soap & Water (Your incisions have skin glue and it can get wet. Leave on until it falls off) Follow Up Care Please Follow Up With: Rosenda Saenz MD When: In my office or virtual visit in 1-2 weeks or as needed Test Results: Test results from this visit will be discussed in further detail at your follow-up appointment, if applicable. Discharge Plan Admission Attending Provider: Rosenda Saenz Primary Care Provider: Ailyn Osuna NP Discharge Orders/Prescriptions Prescriptions: New ibuprofen [ibuprofen] 600 MG tablet 600 mg PO Q6H PRN (Reason: Pain) Qty: 30 RF: 1 oxycodone 5 MG tablet 5 mg PO Q6H PRN PRN (Reason: severe pain) 7 Days Qty: 20 RF: 0 acetaminophen [Tylenol Extra Strength] 500 mg tablet 1,000 mg PO Q6H PRN (Reason: pain) Qty: 30 RF: 0 Continued multivitamin with minerals 1 EACH tablet 1 each PO DAILY RF: 0 Discontinued norethindrone-e.estradiol-iron 1 EACH tablet 1 each PO DAILY RF: 0 Referrals: Ailyn Osuna NP, SERVICE UNIT OPERATOR [facility] [Primary Care Provider] - Disposition Discharge Orders: Discharge Patient (Routine); Ordered 07/11/20 Ordered By: Dr. Rosenda Saenz
[2020-07-11 09:45] VITALS: BP 103/63; BP 111/61; PULSE 72; RESP 16; TEMP 36.7; O2SAT 99
== END 2020-07-11 09:56 | disposition home or self-care (01) ==
LOC: SDC 05:44 → AC 05:45
PROVIDERS: Referring Provider Obstetrics & Gynecology; Visit Provider Obstetrics & Gynecology
PROC: (CPT 58661; principal; 2020-07-11 07:15)
DX: Z30.2 Encounter for sterilization (principal)
CPT/HCPCS: 00840; 58661; 81025; 85027; 87426; 88302; 88305; J7120; J2405